=== PATIENT | female | born 1970 | race African-American/Black ===

== ENCOUNTER 2017-09-27 09:16 | Emergency (ER) | payer OTHER, MEDICAID ==
[~2017-09-27] VITALS: Ht 162.6 cm; Wt 87.5 kg
[2017-09-27] MEDS ORDERED: RISPERDAL2 MG ORAL (09:40)
[2017-09-27] MEDS ORDERED: DOK100 M1 ORAL (09:41)
[2017-09-27] MEDS ORDERED: TOLTERODINE TART4 MG ORAL (09:41)
[2017-09-27] MEDS ORDERED: VRAYLAR3 MG PO (09:43)
[2017-09-27] MEDS ORDERED: ZOLPIDEM TARTRA10 MG ORAL (09:43)
[2017-09-27] MEDS ORDERED: TRINESSA1 EAC1 PO (09:44)
[2017-09-27] MEDS ORDERED: METFORMIN HCL500 M1 ORAL (09:44)
[2017-09-27] MEDS ORDERED: DIVALPROEX SOD500 M2 ORAL (10:10)
[2017-09-27] MEDS ORDERED: SAPHRIS10 MG ORAL (10:16)
[2017-09-27] MEDS ORDERED: LATUDA120 MG ORAL (10:16)
[2017-09-27] MEDS ORDERED: THIOTHIXENE5 M1 ORAL (10:16)
[2017-09-27] MEDS ORDERED: LITHIUM CARBON300 M4 ORAL (10:16)
[2017-09-27] MEDS ORDERED: LORAZEPAM2 MG ORAL (10:16)
[2017-09-27] MEDS ORDERED: [UNRECOGNIZED DRUG - OTHER] ORAL (10:16)
[2017-09-27 10:59] LABS: APPEARANCE,URINE CLEAR; BILIRUBIN, URINE NEGATIVE (NEGATIVE); COLOR,URINE PALE YELLOW; GLUCOSE, URINE (UA) NEGATIVE (NEGATIVE); KETONES,URINE NEGATIVE (NEGATIVE); LEUKOCYTE ESTERASE ,URINE NEGATIVE (NEGATIVE); NITRITE,URINE NEGATIVE (NEGATIVE); PH,URINE 6 (4.5-8.0); PROTEIN,URINE NEGATIVE (NEGATIVE); UROBILINOGEN,URINE NORMAL MG/DL (0.0-1.0)
[2017-09-27 11:22] LABS: EOSINOPHILS % (AUTO) 1.1 % (0.0-3.0); HEMATOCRIT 36.3 % (37.0-47.0); HEMOGLOBIN 11.3 G/DL (12.0-16.0); LYMPHOCYTES % (AUTO) 26.7 % (20.0-45.0); MEAN CORPUSCULAR VOLUME 91 FL (80-99); MONOCYTES % (AUTO) 7.4 % (1.0-10.0); NEUTROPHILS % (AUTO) 63.8 % (45.0-75.0); PLATELET COUNT 232 K/UL (150-450); RED BLOOD COUNT 3.99 M/UL (4.20-5.40); RED CELL DISTRIBUTION WIDTH 11.3 % (11.6-14.8); WHITE BLOOD COUNT 8.2 K/UL (4.8-10.8)
[2017-09-27 11:36] LABS: ANION GAP 7 mmol/L (5-15); BLOOD UREA NITROGEN 25 mg/dL (7-18); CALCIUM 9.3 MG/DL (8.5-10.1); CARBON DIOXIDE 27 MMOL/L (21-32); CHLORIDE 106 MMOL/L (98-107); CREATININE 2.2 MG/DL (0.55-1.30); POTASSIUM 4.6 MMOL/L (3.5-5.1); SODIUM 140 MMOL/L (136-145)
[2017-09-27 11:48] LABS: ALANINE AMINOTRANSFERASE 24 U/L (12-78); ALBUMIN 3.1 G/DL (3.4-5.0); ALBUMIN/GLOBULIN RATIO 0.8 (1.0-2.7); ALKALINE PHOSPHATASE 42 U/L (46-116); ASPARTATE AMINO TRANSFERASE 22 U/L (15-37); BILIRUBIN,TOTAL 0.1 MG/DL (0.2-1.0)
--- NOTE | 2017-09-27 12:30 | Diagnostic Imaging Report ---
Indication: Reason For Exam: AMS Technique: spiral acquisitions obtained through the brain. Angled axial and coronal 5 x 5 mm slices were reconstructed. No IV contrast utilized. Radiation dose was minimized using automated exposure control Total dose length product 1305 mGycm. CTDIvol(s) 70 mGy Comparison: none FINDINGS: No acute hemorrhage or edema. No mass effect or midline shift. There is age-related enlargement of the ventricles and extra axial CSF spaces. There is periventricular deep white matter ischemic change. Normal wynn-white differentiation. Visualized orbits are unremarkable. Visualized sinuses are unremarkable. Intact calvarium. IMPRESSION: Chronic and age-related changes. Negative for acute intracranial bleed or mass effect The CT scanner at [facility] is accredited by the [employer] and the scans are performed using protocols designed to limit radiation exposure to as low as reasonably achievable to attain images of sufficient resolution adequate for diagnostic evaluation
--- NOTE | 2017-09-27 14:50 | Emergency Room Report ---
History of Present Illness General Chief Complaint: General Complaint Source: Patient, Medical Record, Caregiver Present Illness HPI This patient presents from a psychiatric facility. She has a history of severe schizophrenia. She is ongoing history of increased sleepiness. Apparently, this is been going on for about 6 months. She had been seen at an acute psychiatric Hospital and there was a recommendation to go down on the patient's psychiatric medications. However, these are not changed. The patient did have a recent change to Ambien 15 mg at night. Otherwise, there are no complaints. The patient has no complaints. There've been no fever or chills. There is no nausea or vomiting. There is no chest pain or shortness of breath. There are no other complaints. Allergies: Coded Allergies: No Known Allergies (Unverified , 09/27/17) Patient History Past Medical History: see triage record, DM, psych hx Social History: Denies: smoking, alcohol use, drug use Last Menstrual Period: on period Reviewed Nursing Documentation: PMH: Agreed, PSxH: Agreed Nursing Documentation-PMH Hx Diabetes: Yes History Of Psychiatric Problem: Yes - Schizophrenia, anxiety, psychosis Review of Systems All Other Systems: negative except mentioned in HPI Physical Exam Vital Signs Date Time Temp Pulse Resp B/P (MAP) Pulse Ox O2 Delivery O2 Flow Rate FiO2 09/27/17 09:26 97.9 95 16 123/87 100 Room Air Sp02 EP Interpretation: reviewed, normal General Appearance: no apparent distress, alert, GCS 15, non-toxic Head: normocephalic, atraumatic Eyes: bilateral eye normal inspection, bilateral eye PERRL ENT: hearing grossly normal, normal pharynx, no angioedema, normal voice Neck: full range of motion, supple/symm/no masses Respiratory: chest non-tender, lungs clear, normal breath sounds, speaking full sentences Cardiovascular #1: regular rate, rhythm, no edema Gastrointestinal: normal bowel sounds, non tender, soft, non-distended, no guarding, no rebound Rectal: deferred Musculoskeletal: back normal, gait/station normal, normal range of motion, non- tender Neurologic: alert, oriented x3, responsive, motor strength/tone normal, sensory intact Psychiatric: mood/affect normal, no suicidal/homicidal ideation Skin: normal color, no rash, warm/dry, well hydrated Medical Decision Making Diagnostic Impression: Primary Impression: Medication side effect ER Course This patient presents with a caregiver from her psychiatric facility. He was concerned that she has had ongoing sleepiness for the past 6 months. The patient is on a heavy dose of Ambien at night. I suspect this is a contributing factor, especially given the patient's renal function. This is baseline renal function for this patient. The caregiver did have a recent set of labs to include a creatinine and baseline for this patient is 2.4. CT of the head is unremarkable. The patient is on lithium and I did obtain a lithium level. Unfortunately, this will be back in 2 days. I did educate the caregiver that she could obtain this result in a few days. She would have to request from medical records. Overall, this patient's evaluation is benign and I did not identify an emergency medical condition. I suspect the sleepiness is related to the complex and extensive psychiatric medications. The caregiver was instructed to have any medications reviewed again by the psychiatrist to look for options for a decreasing dosage. Patient and the caregiver indicated understanding. Laboratory Tests Test 09/27/17 10:45 09/27/17 11:05 09/27/17 12:20 Urine Color Pale yellow Urine Appearance Clear Urine pH 6 (4.5-8.0) Urine Specific Green 1.005 (1.005-1.035) Urine Protein Negative (NEGATIVE) Urine Glucose (UA) Negative (NEGATIVE) Urine Ketones Negative (NEGATIVE) Urine Occult Blood Negative (NEGATIVE) Urine Nitrite Negative (NEGATIVE) Urine Bilirubin Negative (NEGATIVE) Urine Urobilinogen Normal MG/DL (0.0-1.0) Urine Leukocyte Esterase Negative (NEGATIVE) Urine HCG, Qualitative Negative Urine Opiates Screen Negative (NEGATIVE) Urine Barbiturates Screen Negative (NEGATIVE) Phencyclidine (PCP) Screen Negative (NEGATIVE) Urine Amphetamines Screen Negative (NEGATIVE) Urine Benzodiazepines Screen Negative (NEGATIVE) Urine Cocaine Screen Negative (NEGATIVE) Urine Marijuana (THC) Screen Negative (NEGATIVE) White Blood Count 8.2 K/UL (4.8-10.8) Red Blood Count 3.99 M/UL (4.20-5.40) L Hemoglobin 11.3 G/DL (12.0-16.0) L Hematocrit 36.3 % (37.0-47.0) L Mean Corpuscular Volume 91 FL (80-99) Mean Corpuscular Hemoglobin 28.3 PG (27.0-31.0) Mean Corpuscular Hemoglobin Concent 31.2 G/DL (32.0-36.0) L Red Cell Distribution Width 11.3 % (11.6-14.8) L Platelet Count 232 K/UL (150-450) Mean Platelet Volume 7.2 FL (6.5-10.1) Neutrophils (%) (Auto) 63.8 % (45.0-75.0) Lymphocytes (%) (Auto) 26.7 % (20.0-45.0) Monocytes (%) (Auto) 7.4 % (1.0-10.0) Eosinophils (%) (Auto) 1.1 % (0.0-3.0) Basophils (%) (Auto) 1.0 % (0.0-2.0) Sodium Level 140 MMOL/L (136-145) Potassium Level 4.6 MMOL/L (3.5-5.1) Chloride Level 106 MMOL/L (98-107) Carbon Dioxide Level 27 MMOL/L (21-32) Anion Gap 7 mmol/L (5-15) Blood Urea Nitrogen 25 mg/dL (7-18) H Creatinine 2.2 MG/DL (0.55-1.30) H Estimate Glomerular Filtration Rate 28.7 mL/min (>60) Glucose Level 101 MG/DL (74-106) Calcium Level 9.3 MG/DL (8.5-10.1) Total Bilirubin 0.1 MG/DL (0.2-1.0) L Aspartate Amino Transferase (AST) 22 U/L (15-37) Alanine Aminotransferase (ALT) 24 U/L (12-78) Alkaline Phosphatase 42 U/L (46-116) L Total Protein 7.2 G/DL (6.4-8.2) Albumin 3.1 G/DL (3.4-5.0) L Globulin 4.1 g/dL Albumin/Globulin Ratio 0.8 (1.0-2.7) L Thyroid Stimulating Hormone (TSH) 2.833 uiU/mL (0.358-3.740) Salicylates Level 1.4 ug/mL (2.8-20) L Acetaminophen Level < 2 MCG/ML (10-30) L Valproic Acid Level 77 MCG/ML (50-100) Serum Alcohol < 3 mg/dL Hubbell Level Pending EKG Diagnostic Results Rate: bradycardiac Rhythm: other - S.bradycardia Rhythm Strip Diag. Results EP Interpretation: yes Rate: S.Elieser Rhythm: other - S.elieser CT/MRI/US Diagnostic Results CT/MRI/US Diagnostic Results : Imaging Test Ordered: CT head Impression No acute findings. See official report. Last Vital Signs Date Time Temp Pulse Resp B/P (MAP) Pulse Ox O2 Delivery O2 Flow Rate FiO2 09/27/17 09:26 97.9 95 16 123/87 100 Room Air Disposition: HOME, SELF-CARE Condition: Stable Referrals: NON PHYSICIAN (PCP) Additional Instructions: Recommended decreasing Ambien to 5 mg at bedtime. Also recommend review of psychiatric medications for possible decreasing dosages. The lithium level is still pending. You can obtain the results of the lithium level in 2-3 days at medical records. BRODY HARPER D.O. Sep 27, 2017 14:50
[2017-09-27 15:45] VITALS: BP 137/78
--- NOTE | 2017-10-07 16:20 | Cardiology Report ---
APPROVED REPORT EKG Measurement Heart [id number] Sinus bradycardia Low voltage QRS Nonspecific T wave abnormality Abnormal ECG
== END 2017-09-27 15:45 | disposition home or self-care (01) ==
LOC: EMR 10:20
DX: G47.8 Other sleep disorders (principal); T50.995A Adverse effect of other drugs, medicaments and biological substances, initial encounter; F20.9 Schizophrenia, unspecified; E11.9 Type 2 diabetes mellitus without complications; F41.9 Anxiety disorder, unspecified; F29 Unspecified psychosis not due to a substance or known physiological condition
CPT/HCPCS: 36415; 70450; 80053; 80164; 80178; 80307; 81003; 81025; 84443; 85025; 93005; 96360; 99284; G0480; 80329